=== PATIENT | female | born 1980 | race Two or more races ===

== ENCOUNTER 2017-03-20 14:00 | Emergency (ER) | payer SELFPAY ==
[~2017-03-20] VITALS: Ht 170.2 cm; Wt 61.2 kg
[2017-03-20 14:30] LABS: BASOPHILS # (AUTO) 0.1 /CMM (0.0-0.2); BASOPHILS % (AUTO) 0.6 % (0.0-2.0); EOSINOPHILS % (AUTO) 0.4 % (0.0-6.0); HEMATOCRIT 35 % (33-45); HEMOGLOBIN 11.6 g/dL (11.5-14.8); LYMPHOCYTES # (AUTO) 1.4 /CMM (0.8-4.8); LYMPHOCYTES % (AUTO) 13.7 % (20.0-44.0); MEAN CORPUSCULAR HEMOGLOBIN 29 PG (26.0-33.0); MEAN CORPUSCULAR HGB CONC 33 g/dl (31.0-36.0); MEAN CORPUSCULAR VOLUME 87 fL (82-100); MONOCYTES % (AUTO) 10.3 % (2.0-12.0); NEUTROPHILS # (AUTO) 7.6 /CMM (1.8-8.9); PLATELET COUNT (AUTO) 302 /CMM (150-450); RDW COEFFICIENT OF VARIATION 14.9 (11.5-15.0); RED BLOOD CELL COUNT(AUTO) 3.99 MIL/uL (4.0-5.2); WHITE BLOOD COUNT (AUTO) 10.2 K/uL (4.3-11.0)
[2017-03-20] MEDS ORDERED: OLANZAPINE 5 MG TABLET PO ONE (14:30)
[2017-03-20] MEDS ORDERED: LORAZEPAM 1 MG TABLET PO ONE (14:30)
[2017-03-20 14:46] LABS: ALBUMIN 3.9 g/dL (3.4-5.0); CALCIUM, SERUM 8.7 mg/dL (8.5-10.1); CARBON DIOXIDE 22 mmol/L (21-32); CHLORIDE 113 mmol/L (98-107); CREATININE 1.1 mg/dL (0.6-1.3); GLUCOSE 96 mg/dL (74-106); POTASSIUM 3.1 mmol/L (3.5-5.1); SODIUM SERUM 147 mmol/L (136-145); UREA NITROGEN, BLOOD 22 mg/dL (7-18)
[2017-03-20 14:57] LABS: ALANINE AMINOTRANSFERASE 31 U/L (12-78); ALCOHOL, BLOOD < 3 mg/dL (0-0); ALKALINE PHOSPHATASE 75 U/L (46-116); ASPARTATE AMINOTRANSFERASE 55 U/L (15-37); BILIRUBIN,DIRECT 0.1 mg/dL (0.0-0.2); BILIRUBIN,TOTAL 0.5 mg/dL (0.2-1.0); TOTAL PROTEIN, SERUM 7.5 g/dL (6.4-8.2)
[2017-03-20 14:59] LABS: ACETAMINOPHEN 0 ug/ml (10-30); SALICYLATE 1.1 mg/dL (2.8-20.0)
--- NOTE | 2017-03-20 15:05 | NUR ---
ASSUME PT CARE. PER REPORT, PT WAS SEEN IN THE ACT OF SHOOTING HEROIN AND GOT REALLY AGITATED. WAS GIVEN NARCAN IN THE FIELD. PT IS AAOX3, GOWNED AND PLACED ON MONITOR. STABLE VITALS. SEEN AND EVALUATED BY DR GUERRERO.
[2017-03-20] MEDS ORDERED: LORAZEPAM 1 MG TABLET ONE (15:07)
[2017-03-20] MEDS ORDERED: OLANZAPINE 5 MG TABLET ONE (15:08)
--- NOTE | 2017-03-20 18:10 | NUR ---
PT SLEEPING IN BED. ON MONITOR W/ STABLE VITALS NOTED. WILL CONTINUE TO MONITOR.
[2017-03-20 18:24] LABS: APPEARANCE,URINE Cloudy (CLEAR); BILIRUBIN,URINE SMALL (NEGATIVE); BLOOD, URINE Trace-lysed Ery/uL (NEGATIVE); COLOR,URINE Yellow (YELLOW); KETONES,URINE 80 (NEGATIVE); LEUKOCYTE ESTERASE ,URINE Negative (NEGATIVE); NITRITE, URINE Negative (NEGATIVE); PROTEIN,URINE 100 mg/dl (NEGATIVE); UGLUCOSE Negative (NEGATIVE); UROBILINOGEN,URINE 0.2 EU/dL (0.2)
[2017-03-20 18:43] LABS: BACTERIA,URINE Few /HPF (None Seen); SQUAMOUS EPITHELIAL CELL,UR Few /HPF (None Seen)
--- NOTE | 2017-03-20 19:42 | NUR ---
ANDREZ COHEN LEFT # [phone]
--- NOTE | 2017-03-20 23:04 | NUR ---
PT SLEEPING, ON MONITOR W/ STABLE VITALS. PT IS AROUSABLE. TALK TO PT'S FIANCE AND STATES THAT HE IS WILLING TO TAKE HER HOME ONCE SHE SOBER UP. WILL CONTINUE TO MONITOR.
--- NOTE | 2017-03-21 00:32 | NUR ---
PT IS RESTING IN ER BED, NAD NOTED, SKIN IS WARM AND DRY, RR EVEN AND UNLABORED. WILL CONTINUE TO MONITOR.
--- NOTE | 2017-03-21 03:22 | NUR ---
PT ASKED FOR WATER, GAVE PATIENT WATER. NAD NOTED AT THIS TIME, SKIN WARM AND DRY, RR EVEN AND UNLABORED. WILL CONTINUE TO MONTIOR
--- NOTE | 2017-03-21 06:14 | NUR ---
PATIENT IS ASLEEP IN ER BED, NAD NOTED, SKIN WARM AND DRY, RESP EVEN AND UNLABORED. 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 VITAL SIGNS UPDATED. WILL CONTINUE TO MONITOR
--- NOTE | 2017-03-21 09:26 | NUR ---
so at bedside, wants a psych eval,Eloise called for eval
[2017-03-21 11:50] VITALS: BP 111/60
--- NOTE | 2017-03-21 11:50 | NUR ---
Patient discharged to home in stable condition. Written and verbal after care instructions given. Patient verbalizes understanding of instruction.
== END 2017-03-21 11:52 | disposition home or self-care (01) ==
LOC: ER 14:02
DX: F10.129 Alcohol abuse with intoxication, unspecified (principal); F15.129 Other stimulant abuse with intoxication, unspecified; F32.9 Major depressive disorder, single episode, unspecified; F17.200 Nicotine dependence, unspecified, uncomplicated
CPT/HCPCS: 36415; 80048; 80076; 80305; 80329; 81001; 84703; 85025; 99284; A4606; G0480 ×2; Z7610; 81000-TC

== ENCOUNTER 2017-10-27 02:33 | Emergency (ER) | payer OTHER ==
[~2017-10-27] VITALS: Ht 165.1 cm; Wt 59.0 kg
--- NOTE | 2017-10-27 03:00 | NUR ---
BBRA; PER [employer], PT WAS IN CUSTODY 11P, WHILE IN CUSTODY PATIENT STARTED TO verbally respond to policemen. upon arrival, pt was agitated and cursing at staff and police officers. pt is aaox3. resp even and unlabored. skin wnl. vss. no s/s of acute distress noted. pt noted to have a spit mask on [employer]. pt in custody. awaiting md for eval.
[2017-10-27 03:09] LABS: BASOPHILS % (AUTO) 0.2 % (0.0-2.0); EOSINOPHILS % (AUTO) 1.2 % (0.0-6.0); HEMATOCRIT 39 % (33-45); HEMOGLOBIN 12.8 g/dL (11.5-14.8); LYMPHOCYTES # (AUTO) 1.1 /CMM (0.8-4.8); LYMPHOCYTES % (AUTO) 10.4 % (20.0-44.0); MEAN CORPUSCULAR HGB CONC 33 g/dl (31.0-36.0); MEAN CORPUSCULAR VOLUME 85 fL (82-100); MONOCYTES # (AUTO) 0.6 /CMM (0.1-1.30); MONOCYTES % (AUTO) 5.5 % (2.0-12.0); NEUTROPHILS # (AUTO) 8.7 /CMM (1.8-8.9); NEUTROPHILS % (AUTO) 82.7 % (43.0-81.0); PLATELET COUNT (AUTO) 364 /CMM (150-450); RDW COEFFICIENT OF VARIATION 13.9 (11.5-15.0); RED BLOOD CELL COUNT(AUTO) 4.51 MIL/uL (4.0-5.2); WHITE BLOOD COUNT (AUTO) 10.6 K/uL (4.3-11.0)
[2017-10-27 03:16] LABS: CALCIUM, SERUM 9.1 mg/dL (8.5-10.1); CREATININE 1.1 mg/dL (0.6-1.3); POTASSIUM 3.9 mmol/L (3.5-5.1)
[2017-10-27] MEDS ORDERED: IV NS 0.9% 1,000 ML BAG IV ONE (03:30)
--- NOTE | 2017-10-27 03:59 | NUR ---
PT AGITATED WHILE IV WAS BEING INSERTED. PT BEGAN CURSING AND SWINGING AT STAFF AND POLICE OFFICERS. MADE AWARE OF NO IV ACCESS AT THIS TIME. WILL CONTINUE TO MONITOR PT.
--- NOTE | 2017-10-27 04:10 | NUR ---
WHILE ATTEMPTING TO PLACE AN IV FOR THIS PATIENT, 2 POLICEMEN AND RESISTANCE WELDING MACHINE OPERATOR SAMI ASSISTED IN MAKING SURE SHE WOULD NOT MOVE SINCE SHE WAS NOTED CURSING AT STAFF. WHILE NEEDLE WAS INSERTED PT STARTED TO WAVE HER LEG VIOLENTLY AROUND HITTING THE BACK OF SAMI'S HEAD. THE PATIENT DID NOT HIT ME BUT AFTER SHE ATTEMPTED TO HIT US WE PLACED ON HANDCUFFS WELL LEG RESTRAINTS IN ORDER TO CONTAIN THE PATIENT.
[2017-10-27] MEDS ORDERED: diphenhydrAMINE HCL 50 MG/ML VIAL IM ONE (04:30)
[2017-10-27] MEDS ORDERED: LORAZEPAM INJ 2 MG/ML VIAL IM ONE (04:30)
[2017-10-27] MEDS ORDERED: HALOPERIDOL LACTATE INJ 5 MG/ML VIAL IM ONE (04:30)
[2017-10-27] MEDS ORDERED: diphenhydrAMINE HCL 50 MG/ML VIAL ONE (04:32)
[2017-10-27] MEDS ORDERED: HALOPERIDOL LACTATE INJ 5 MG/ML VIAL ONE (04:32)
--- NOTE | 2017-10-27 06:36 | NUR ---
urine sample collected and called lab for pickup
[2017-10-27 07:03] LABS: APPEARANCE,URINE SL CLOUDY (CLEAR); BILIRUBIN,URINE NEGATIVE (NEGATIVE); BLOOD, URINE NEGATIVE Ery/uL (NEGATIVE); COLOR,URINE YELLOW (YELLOW); KETONES,URINE 2+ (NEGATIVE); LEUKOCYTE ESTERASE ,URINE NEGATIVE (NEGATIVE); NITRITE, URINE NEGATIVE (NEGATIVE); PH,URINE 5.5 (5.0-8.0); PROTEIN,URINE NEGATIVE (NEGATIVE); UGLUCOSE NEGATIVE (NEGATIVE); UROBILINOGEN,URINE 0.2 EU/dL (0.2)
--- NOTE | 2017-10-27 07:39 | NUR ---
REPORT GIVEN TO FLACA HORAN FOR SOILA.
--- NOTE | 2017-10-27 07:40 | NUR ---
RECEIVED REPORT FOR SOILA.
[2017-10-27 07:49] LABS: BACTERIA,URINE Few /HPF (None Seen); RBC,URINE NONE SEEN /HPF (0-2); WBC,URINE 0-2 /HPF (0-3)
[2017-10-27 07:50] LABS: SQUAMOUS EPITHELIAL CELL,UR Few /HPF (None Seen); URINE AMORPHOUS URATE Few /HPF (None Seen)
--- NOTE | 2017-10-27 10:20 | NUR ---
Patient ambulating with steady gait at this time. Alert and oriented. Breathing even and unlabored. No sob. Patient discharged in custody in stable condition. Written and verbal after care instructions given. Patient verbalizes understanding of instruction.
[2017-10-27 10:26] VITALS: BP 132/84
== END 2017-10-27 10:20 ==
LOC: ER 02:37
DX: R45.1 Restlessness and agitation (principal); F32.9 Major depressive disorder, single episode, unspecified
CPT/HCPCS: 36415; 80048; 80305; 81001; 85025; 96372 ×2; 99284; A4606; J1200; J1630; J7030; Z7610; 81000-TC